=== PATIENT | male | born 2000 | race Hispanic/Latino ===

== ENCOUNTER 2020-11-15 07:13 | Inpatient (IN) | payer OTHER ==
[~2020-11-15] VITALS: Ht 172.7 cm; Wt 89.5 kg
[2020-11-15 07:51] LABS: HEMATOCRIT 46.7 % (42.0-52.0); HEMOGLOBIN 15.7 g/dl (13.5-17.5); MEAN CORPUSCULAR HGB CONC 33.6 g/dl (32.0-36.5); MEAN CORPUSCULAR VOLUME 86.2 fl (80.0-96.0); PLATELET COUNT, AUTOMATED 259 10^3/uL (150-450); RED BLOOD COUNT 5.42 10^6/uL (4.30-6.10); WHITE BLOOD COUNT 4.8 10^3/uL (4.0-10.0)
[2020-11-15 08:32] LABS: ACETAMINOPHEN LEVEL < 2.0 UG/ML (10.0-30.0); ALBUMIN 3.8 GM/DL (3.2-5.2); ALT/SGPT 27 U/L (12-78); BILIRUBIN,DIRECT < 0.1 MG/DL (0.0-0.2); BILIRUBIN,TOTAL 0.3 MG/DL (0.2-1.0); BLOOD UREA NITROGEN 17 MG/DL (7-18); CARBON DIOXIDE LEVEL 30 MEQ/L (21-32); CHLORIDE LEVEL 105 MEQ/L (98-107); CREATININE FOR GFR 0.99 MG/DL (0.70-1.30); ETHYL ALCOHOL (ETHANOL) < 0.003 % (0.000-0.010); GLOMERULAR FILTRATION RATE > 60.0 (>60); GLUCOSE, FASTING 99 MG/DL (70-100); POTASSIUM SERUM 4.5 MEQ/L (3.5-5.1); SALICYLATE LEVEL < 1.7 MG/DL (5.0-30.0); SODIUM LEVEL 140 MEQ/L (136-145); TOTAL PROTEIN 7.4 GM/DL (6.4-8.2)
[2020-11-15 09:25] LABS: AMPHETAMINES LEVEL URINE NEGATIVE (NEGATIVE); BARBITURATES URINE NEGATIVE (NEGATIVE); BENZODIAZEPINES URINE NEGATIVE (NEGATIVE); CANNABINOIDS URINE NEGATIVE (NEGATIVE); COCAINE METABOLITE URINE NEGATIVE (NEGATIVE); METHADONE URINE NEGATIVE (NEGATIVE); OPIATES URINE NEGATIVE (NEGATIVE); PHENCYCLIDINE URINE NEGATIVE (NEGATIVE)
[2020-11-15 15:31] LABS: RSV AMPLIFICATION NEGATIVE (NEGATIVE)
[2020-11-15] MEDS ORDERED: HOME MED LIST COMPLETE! XX SCH (16:20)
[2020-11-15] MEDS ORDERED: MOM 30ML SUSPENSION UDC PO PRN (18:15)
[2020-11-15] MEDS ORDERED: MAALOX 30 ML SUSP *UDC PO PRN (18:15)
[2020-11-15] MEDS ORDERED: ACETAMINOPHEN TAB 650MG DOSE (2X325MG) PO PRN (18:15)
[2020-11-15 18:43] VITALS: BP 126/92
[2020-11-16] MEDS: SERTRALINE HCL 50 MG TAB PO SCH (09:00)
[2020-11-16] MEDS: NICOTINE 21MG/24HR 1 EA TRANSDERMAL TD SCH (09:00)
--- NOTE | 2020-11-16 11:30 | MHHPEPDOC ---
General Date Of Admission: Nov 15, 2020 Legal Status: 9.39 Chief Complaint "I haven't been the best mentally and emotionally." History of Present Illness HISTORY OF THE PRESENT ILLNESS: Patient interview - Patient is a 20 -year-old Single, Active Duty , male, who reports that he has not been "mentally and emotionally well" since March. States that the [employer] has been a toxic environment for him. Reports that over the past few months he has had negative thinking, doubting himself and feeling like he is in a job where he is not cared about. He feels that there are limited or no opportunities to move out of the stressful job. And many "other life stresses are getting to me." States that he had vague suicidal thoughts popping up earlier in the year but last weekend had a plan to take pain medications or overdose on pills. "I thought I could handle things, but not really, the environment is toxic and not healthy." PER ED REPORT: PT is AD three years after enlisting to "Get out". He is from [place] and states he has supportive family there. PT has not had to leave the country and he is scheduled to ETS 2022. PT states he wants to complete his contract but he began to question his purpose "the last few months of last year". PT turned to his JASON and he found them to be supportive and he felt better for a few months. PT states his current work environment is an issue as the leadership has been making things more difficult then they need to be and that he is not the only person to feels this way. 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 PT feels that he has no purpose an d he feels empty and alone. He first experienced SI at the beginning of the year and has not told anyone to include his fianc of six months. He went to [place] for a few months and felt much better until her returned October 01. 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 PT's mother struggles with anxiety and she has his two younger siblings to care for and is GF also has emotional issues. PT feels that had he made other choices he would be able to take care of all his loved ones' issues. "I can't believe I let things get to this point" PT feels that he should be able to control his mental health and is very disappointed with himself. Today he and his coworkers were sitting around waiting for their next tasks and everyone was venting about stressors. PT states "I snapped" and he admits to being agitated and that he spoke of everything he has been struggling with and that "This place makes me suicidal". JASON took PT aside to talk and he continued to be honest about his situation. He states he has never told anyone that he was suicidal and that he felt he could handle his situation but the thoughts are coming daily and vivid. PT states that he has been making jokes in regards to his emotional well-being for a very long time and that he wished someone would have realized that he was actually struggling "I dont know how to figure this out" meaning mental health. He has scheduled with the [facility] but has not had time to know if treatment will be beneficial for him. PT states he has planned out which pills to take and that he would overdose in his room. PT does not wish to be admitted as it will be a reminder to him that he could not handle things on his own. Psychiatric Review of Systems Depression (2 or more weeks): depressed mood (started in March), anhedonia, insomnia/hypersomnia (poor sleep, intermittent waking ), decreased energy, difficulty concentrating (poor focus), appetite changes, suicidal thoughts, other (feelings of hopeless ness) Deepa (4 or more days of): denies Psychosis: paranoia (mild) PTSD: denies Anxiety: stressor related anxiety Past Psychiatric History Previous Psychiatric Diagnosis: possible ADHD as a child Previous Psychiatric Admissions: This is the first hospitalization Suicide Attempts: Had a plan to take pain killers last weekend Psychiatric Follow-up: Behavioral Health Psychiatric medications: None Past Medical History Medical Problems no contributory medical conditions Head Injury: No Seizures: No Hospitalizations: Yes Surgeries: Yes (Hernia at 5 years old) Family Medical/Psychiatric HX Medical Problems Mom- HTN, Anxiety Maternal Grandfather - Diabetes Insulin Dependent Psychiatric Disorders: Yes (mother has anxiety) Addiction: Yes (Maternal Uncle - Alcohol, Drugs and Gambling) Suicide Attemps/Completions: No Addiction History alcohol (occasional ) Social History Childhood: Born [place] and describes his childhood "ok" Did well in school. Has many siblings - Lived with his mother (2 brothers and two sister while growing up) but has sibling on his father side Abuse/Trauma: None Current Living Situation: Lives in the [facility] on post Education: High School Diploma Employment: Active Duty Social Support: Girlfriend, Mother Legal: None Marital: Single Stressors 1. My self - any little thing morphed and it is not anything that can be fixed 2. My work environment, it is toxic Mental Status Examination General Appearance: well groomed, appears stated age, hospital scubs/clothing Build: overweight Demeanor: average Eye Contact: average Activity: average Behavior: cooperative Speech: clear, normal volume Mood: depressed, anxious Affect: constricted Thought Process: logical/linear Thought Content (Delusions): none reported Thought Content (Other): none reported Thought Content (Aggressive): none reported Perception (Hallucinations): none reported Perception (Other): none reported Cognition (Impairment of): none reported Cognition(Intelligence Est.): average Oriented: Awake, Alert, Oriented times three Insight: good Judgment: Good Psychosis: Denies Diagnoses Major Depressive Disorder, Single Episode, Moderate A-FIB/CHADSVASC A-FIB History Current/History of A-Fib/PAF?: No Current PO Anticoag Therapy: No Assessment atient interview - Patient is a 20 -year-old Single, Active Duty , male, who reports that he has not been "mentally and emotionally well" since March. States that the [employer] has been a toxic environment for him. Reports that over the past few months he has had negative thinking, doubting himself and feeling like he is in a job where he is not cared about. Patient reports a history of catastrophizing any decisions especially ones where the outcomes is poor. Educated on medications and states "I am just at a low point, I don't agree on any medications." Patient is agreeable to cognitive therapy in individual and group therapy, will provider safe milieu and observe for any continued threats of self-harm. Will discharged when stable. Initial Treatment Plan 1. Patient was admitted on a [9.39] status. 2. Complete history was obtained. 3. With patients permission, family will be contacted and database will be expanded. 4. Patients medication regimen will be reviewed and changed accordingly. 5. Patient will be provided with protected environment. 6. Patient will be treated with individual, group, and milieu therapies. 7. Patient will receive supportive psych-education. 8. Discharge planning will commence immediately. 9. Outpatient follow-up treatment will be strongly recommended. 10. The initial treatment plan will focus initially on: * Depression. * Risk for suicide * Negative thinking ESTIMATED LENGTH OF STAY: 3-5 DAYS. TIME SPENT COUNSELING AND COORDINATING INITIAL CARE: 60minutes. Tobacco Cessation Screen If Patient is a Smoker Patient is not a smoker Tobacco Cessation Tx Ordered?: No r/t failed trials N/A-No Antipsychotics Vital Signs Vital Signs Date Time Temp Pulse Resp B/P (MAP) Pulse Ox O2 Delivery O2 Flow Rate FiO2 11/15/20 18:43 97.9 82 16 126/92 (103) 11/15/20 07:13 98 Room Air Laboratory Data 24H Labs Laboratory Tests 2 11/15/20 14:44: Coronavirus (COVID-19)(PCR) NEGATIVE, Influenza Type A (RT-PCR) NEGATIVE, Influenza Type B (RT-PCR) NEGATIVE, Respiratory Syncytial Virus (PCR) NEGATIVE Medications No Active Prescriptions or Reported Meds Allergies Coded Allergies: No Known Allergies (Unverified , 11/15/20) NE HENRY NP Nov 16, 2020 11:30
--- NOTE | 2020-11-16 15:02 | MHIPNPDOC ---
[facility] Progress Note Progress Note DATE OF SERVICE: 11/16/20 This staff writer decided to admit the patient to [facility] after the case was presented by Emergency Department staff member. 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 Needed to be admitted for safety. Vital Signs Vital Signs Date Time Temp Pulse Resp B/P (MAP) Pulse Ox O2 Delivery O2 Flow Rate FiO2 11/15/20 18:43 97.9 82 16 126/92 (103) 11/15/20 07:13 98 Room Air Current Medications Current Medications Medications (Trade) Dose Ordered Sig/Diya Route PRN Reason Start Time Stop Time Status Last Admin Dose Admin Acetaminophen (Tylenol Tab) 650 mg Q6HP PRN PO HEADACHE or MILD DISCOMFORT 11/15/20 18:15 Al Hydrox/Mg Hydrox/Simethicone (Mylanta) 30 ml Q4HP PRN PO HEARTBURN/INDIGESTION 11/15/20 18:15 Home Med (Home Med List Complete!) ASDIRECTED XX 11/15/20 16:20 11/15/20 16:18 DC Magnesium Hydroxide (Milk Of Magnesia) 30 ml DAILYPRN PRN PO CONSTIPATION 11/15/20 18:15 Nicotine (Nicoderm Cq 21mg) 1 patch DAILY TD 11/16/20 09:00 Sertraline HCl (Zoloft) 50 mg DAILY PO 11/16/20 09:00 Trazodone HCl (Desyrel) 50 mg QHSP PRN PO INSOMNIA 11/15/20 18:15 Allergies Coded Allergies: No Known Allergies (Unverified , 11/15/20) CA PAEZ MD Nov 16, 2020 15:02
[2020-11-16 17:24] VITALS: BP 121/66
[2020-11-16] MEDS: traZODone 50 MG TAB PO PRN (20:47)
[2020-11-17 06:45] VITALS: BP 119/59
[2020-11-17] MEDS: NICOTINE 21MG/24HR 1 EA TRANSDERMAL TD SCH (08:33)
[2020-11-17] MEDS: SERTRALINE HCL 50 MG TAB PO SCH (08:33)
--- NOTE | 2020-11-17 12:43 | MHIPNPDOC ---
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 States that the [employer] has been a toxic environment for him. Reports that over the past few months he has had negative thinking, doubting himself and feeling like he is in a job where he is not cared about. He feels that there are limited or no opportunities to move out of the stressful job. And many "other life stresses are getting to me." States that he had vague suicidal thoughts popping up earlier in the year but last weekend had a plan to take pain medications or overdose on pills. "I thought I could handle things, but not really, the environment is toxic and not healthy." PER ED REPORT: PT is AD three years after enlisting to "Get out". He is from [place] and states he has supportive family there. PT has not had to leave the country and he is scheduled to ETS 2022. PT states he wants to complete his contract but he began to question his purpose "the last few months of last year". PT turned to his JASON and he found them to be supportive and he felt better for a few months. PT states his current work environment is an issue as the leadership has been making things more difficult then they need to be and that he is not the only person to feels this way. 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 PT feels that he has no purpose and he feels empty and alone. He first experienced SI at the beginning of the year and has not told anyone to include his fianc of six months. He went to [place] for a few months and felt much better until her returned October 01. 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 PT's mother struggles with anxiety and she has his two younger siblings to care for and is GF also has emotional issues. PT feels that had he made other choices he would be able to take care of all his loved ones' issues. "I can't believe I let things get to this point" PT feels that he should be able to control his mental health and is very disappointed with himself. Today he and his coworkers were sitting around waiting for their next tasks and everyone was venting about stressors. PT states "I snapped" and he admits to being agitated and that he spoke of everything he has been struggling with and that "This place makes me suicidal". JASON took PT aside to talk and he continued to be honest about his situation. He states he has never told anyone that he was suicidal and that he felt he could handle his situation but the thoughts are coming daily and vivid. PT states that he has been making jokes in regards to his emotional well- being for a very long time and that he wished someone would have realized that he was actually struggling "I dont know how to figure this out" meaning mental health. He has scheduled with the [facility] but has not had time to know if treatment will be beneficial for him. PT states he has planned out which pills to take and that he would overdose in his room. PT does not wish to be admitted as it will be a reminder to him that he could not handle things on his own. VITAL SIGNS: See below. NEW TEST RESULTS: None CURRENT MEDICATIONS: See below. MENTAL STATUS EXAMINATION: - Patient is a 20 -year-old Single, Active Duty , male, who reports that he has not been "mentally and emotionally well" General Appearance: Hygiene and grooming fair mildly disheveled, appears stated age, hospital scrubs/clothing Build: overweight Demeanor: average Eye Contact: average Activity: average Behavior: cooperative Speech: clear, normal volume Mood: depressed, anxious Affect: constricted Thought Process: logical/linear Thought Content (Delusions): none reported Thought Content (Other): none reported Thought Content (Aggressive): none reported Perception (Hallucinations): none reported Perception (Other): none reported Cognition (Impairment of): none reported Cognition(Intelligence Est.): average Oriented: Awake, Alert, Oriented times three Insight: good Judgment: Good Psychosis: Denies DIAGNOSES: Major Depressive Disorder, Single Episode, Moderate ASSESSMENT: Patient found sleeping willing to be interviewed this morning. States that he is anxious this morning but mostly because he does not want to be on the unit anymore. Reports that his depression is decreased nominally. Reports his mood is "better". Reports that much of his problems will not be taking care of until he is no longer in the [employer]. He refused to elaborate on this but we did have a meaningful conversation about some of his stressors. He reports that he understands that much of his feeling about toxic environments is his ability to view it as a negative thinking. He also talks about his gir lfriend having family issues, we talked about this being a temporary issue and that at some point it will improve. Patient continues to worry about his mother but appears to minimize this as a stressor. Patient is seen in the milieu cooperative and pleasant. He denies any suicidal thinking in the interview today and requesting to be discharged tomorrow. MANAGEMENT PLAN: Continue all as needed medication and continue supportive therapies. Patient does not want to have any anti depression medication. Akira brandon to be discharged tomorrow TIME SPENT: 25 minutes. Vital Signs Vital Signs Date Time Temp Pulse Resp B/P (MAP) Pulse Ox O2 Delivery O2 Flow Rate FiO2 11/17/20 06:45 97.0 78 16 119/59 (79) 96 Room Air Current Medications Current Medications Medications (Trade) Dose Ordered Sig/Diya Route PRN Reason Start Time Stop Time Status Last Admin Dose Admin Acetaminophen (Tylenol Tab) 650 mg Q6HP PRN PO HEADACHE or MILD DISCOMFORT 11/15/20 18:15 Al Hydrox/Mg Hydrox/Simethicone (Mylanta) 30 ml Q4HP PRN PO HEARTBURN/INDIGESTION 11/15/20 18:15 Home Med (Home Med List Complete!) ASDIRECTED XX 11/15/20 16:20 11/15/20 16:18 DC Magnesium Hydroxide (Milk Of Magnesia) 30 ml DAILYPRN PRN PO CONSTIPATION 11/15/20 18:15 Nicotine (Nicoderm Cq 21mg) 1 patch DAILY TD 11/16/20 09:00 Sertraline HCl (Zoloft) 50 mg DAILY PO 11/16/20 09:00 Trazodone HCl (Desyrel) 50 mg QHSP PRN PO INSOMNIA 11/15/20 18:15 11/16/20 20:47 Allergies Coded Allergies: No Known Allergies (Unverified , 11/15/20) NE HENRY NP Nov 17, 2020 12:43
[2020-11-17 16:03] VITALS: BP 124/60
[2020-11-17] MEDS: traZODone 50 MG TAB PO PRN (20:22)
[2020-11-18 06:41] VITALS: BP 119/56
[2020-11-18] MEDS ORDERED: SERT50TA29 PO (08:29)
[2020-11-18] MEDS: NICOTINE 21MG/24HR 1 EA TRANSDERMAL TD SCH (09:00)
[2020-11-18] MEDS: SERTRALINE HCL 50 MG TAB PO SCH (09:00)
--- NOTE | 2020-11-18 11:42 | MHDSPDOC ---
[facility] Discharge Summary Discharge Summary DATE OF ADMISSION: Nov 15, 2020 at 18:11 DATE OF DISCHARGE: November 18, 2020 1130 DISCHARGE DIAGNOSES: Major Depressive Disorder, Single Episode, Moderate REASON FOR ADMISSION: Patient interview - Patient is a 20 -year-old Single, Active Duty , male, who reports that he has not been "mentally and emotionally well" since March. States that the [employer] has been a toxic environment for him. Reports that over the past few months he has had negative thinking, doubting himself and feeling like he is in a job where he is not cared about. He feels that there are limited or no opportunities to move out of the stressful job. And many "other life stresses are getting to me." States that he had vague suicidal thoughts popping up earlier in the year but last weekend had a plan to take pain medications or overdose on pills. "I thought I could handle things, but not really, the environment is toxic and not healthy." PER ED REPORT: PT is AD three years after enlisting to "Get out". He is from [place] and states he has supportive family there. PT has not had to leave the country and he is scheduled to [employer] 2022. PT states he wants to complete his contract but he began to question his purpose "the last few months of last year". PT turned to his JASON and he found them to be supportive and he felt better for a few months. PT states his current work environment is an issue as the leadership has been making things more difficult then they need to be and that he is not the only person to feels this way. 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 PT feels that he has no purpose and he feels empty and alone. He first experienced SI at the beginning of the year and has not told anyone to include his fianc of six months. He went to [place] for a few months and felt much better until her returned October 01. 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 PT's mother struggles with anxiety and she has his two younger siblings to care for and is GF also has emotional issues. PT feels that had he made other choices he would be able to take care of all his loved ones' issues. "I can't believe I let things get to this point" PT feels that he should be able to control his mental health and is very disappointed with himself. Today he and his coworkers were sitting around waiting for their next tasks and everyone was venting about stressors. PT states "I snapped" and he admits to being agitated and that he spoke of everything he has been struggling with and that "This place makes me suicidal". JASON took PT aside to talk and he continued to be honest about his situation. He states he has never told anyone that he was suicidal and that he felt he could handle his situation but the thoughts are coming daily and vivid. PT states that he has been making jokes in regards to his emotional well- being for a very long time and that he wished someone would have realized that he was actually struggling "I dont know how to figure this out" meaning mental health. He has scheduled with the [facility] but has not had time to know if treatment will be beneficial for him. PT states he has planned out which pills to take and that he would overdose in his room. PT does not wish to be admitted as it will be a reminder to him that he could not handle things on his own. VITAL SIGNS: See below. CONSULTANTS INVOLVED: See Medical H + P by Hospitalist TREATMENT AND PROGRESS ON THE UNIT: Patient was admitted to the [facility] on a 9.39 legal status was afforded the following treatment modalities: 1) Individual Therapy 2) Group Therapy 3) Medication Management 4) Milieu Therapy 5) Safe Environment HOSPITAL COURSE: Patient was admitted to [facility] on a 9.39 legal status. Pt was offered medications but he declined. Mood, anxiety, and intrusive thoughts improved with hospitalization. Pt attended groups daily during stay. Pts symptoms improved with treatment. Patient had no ideations gestures or attempts while in the hospital. He reported anxiety and depression that had decreased while hospitalized. on day of discharge pt. denied depression, anxiety, insomnia, SI/HI, hallucinations, delusions. Pt was discharged home with follow- up with [facility]. Pt felt safe for discharge. DISCHARGE ASSESSMENT: In today's interview, patient is alert and oriented, pt.s dress is appropriate. Hygiene and grooming is well-kempt. Smiles on approach and is pleasant and engaged in the interview. Denies depression and anxiety. Denies suicidal and homicidal ideation, planning or intent. Denies and is not observed with jose angel, psychotic symptoms of delusions, bizarre thinking, obsessions, paranoia, ruminations illogical thoughts, flight of ideas or having poor insight and judgement. At discharge patient has normal mentation, declines further hospitalization on a voluntary status and meets criteria for discharge today. Today and review of his medications that he had declined, he stated that he was being encouraged to take an antidepressant and that he was willing to take this upon his discharge. Reviewed with the patient that he had not taken the medication while he was in the hospital and that he could experience some side effects. Patient states that he would like Zoloft prescribed and would consider taking it along with seeing a psychiatrist at [facility]. Reinforced with the patient, that prescribing him the Zoloft without assessing for any adverse effects is highly discouraged by this provider. But patient insists that he can be followed up with for [facility]. He states that he is going to look for new hobby, something that will bring him enjoyment, and that he plans on visiting his fiance this weekend. Patient appears somewhat nervous about returning to post stating that he does not want his hospitalization to affect him negatively. And he worries that his diagnosis will filter up to chain of command and further feed into negativity. MENTAL STATUS EXAMINATION ON DISCHARGE: Patient interview - Patient is a 20 -year-old Single, Active Duty , male, who reports that he has not been "mentally and emotionally well" since March. Speech: Is fluid, conversant, normal rate, tone and volume Language skills are intact Thought processes including: linear and goal oriented Thought content: denies depression and anxiety. Denies suicidal/homicidal ideation, planning or intent. Abstract reasoning, and computation: fair Description of associations: denies, none observed Description of abnormal or psychotic thoughts: denies, none observed. Judgment: fair Insight: fair Orientation: alert and oriented to person, place, time and situation Recent and remote memory: intact Attention span and concentration: good Language: expansive Fund of knowledge: average Mood: Euthymic Mood Affect: reactive Suicide Risk Assessment: 1) Does the patient wish to be ? No 2) Since your admission, have you had any actual thought of killing yourself? No 3) Since your admission, have you been thinking about how you might do this? No 4) Since your admission, have you had these thoughts and had some intention of acting on them? No 5) Since your admission, have you started to work out or worked out the detail s of how to kill yourself? No 5A) Do you intent to carry out this plan? No and NA 6) Have you ever done anything, started anything, or prepared to do anything with any intent to ? No 6A) How long since your admission did you do any of these? NA MEDICATIONS ON DISCHARGE: See Medication Reconciliation PLAN/FOLLOWUP ARRANGEMENTS: Patient is discharged to change of command, will be returning to the [facility]. He is following up with [facility] The amount of time spent in the coordination of care for this patient was approximately 25 minutes. ETOH/Disorder Med Rx ETOH/DRUG DISORDER RX: N/A Vital Signs/I&Os Vital Signs Date Time Temp Pulse Resp B/P (MAP) Pulse Ox O2 Delivery O2 Flow Rate FiO2 11/18/20 06:41 97.7 63 16 119/56 (77) 100 Room Air Medications Scheduled Sertraline HCl (Sertraline HCl) 50 Mg Tablet, 50 MG PO DAILY for Mood, #7 Allergies Coded Allergies: No Known Allergies (Unverified , 11/15/20) NE HENRY NP Nov 18, 2020 11:42
== END 2020-11-18 11:20 | disposition home or self-care (01) | DRG 885 ==
LOC: M ED 07:13 → M ED INP 18:11 → M PSY 18:32
PROVIDERS: ADMIT Psychiatry & Neurology Psychiatry; ATTEND Psychiatry & Neurology Psychiatry
DX: F32.1 Major depressive disorder, single episode, moderate (principal); R45.851 Suicidal ideations; Z56.6 Other physical and mental strain related to work; Z20.822 Contact with and (suspected) exposure to COVID-19